=== PATIENT | female | born 2000 | race Caucasian/White ===

== ENCOUNTER 2022-08-04 23:57 | Emergency (ER) | payer OTHER ==
[~2022-08-04] VITALS: Ht 165.1 cm; Wt 94.3 kg
[2022-08-05 01:24] VITALS: BP 137/87
--- NOTE | 2022-08-05 01:28 | NUR ---
PT TO LOBBY TO A/W BED
--- NOTE | 2022-08-05 04:14 | NUR ---
PT TO CHAIR B
[2022-08-05] MEDS ORDERED: HYDROcodone/APAP 5/325 MG 1 TAB TAB PO ONE (05:10)
[2022-08-05] MEDS ORDERED: BACI-416 TP (05:17)
[2022-08-05] MEDS ORDERED: NAPR-54 PO (05:17)
[2022-08-05] MEDS ORDERED: BACITRACIN OINT 500 UNITS/GM PKT TP ONE (05:20)
--- NOTE | 2022-08-05 05:43 | NUR ---
Patient discharged with v/s stable. Written and verbal after care instructions given and explained. Patient alert, oriented and verbalized understanding of instructions. Ambulatory with steady gait. All questions addressed prior to discharge. ID band removed. Patient advised to follow up with PMD. Rx of BACITRACIN AND NAPROXEN given. Patient educated on indication of medication including possible reaction and side effects. Opportunity to ask questions provided and answered.
== END 2022-08-05 05:43 | disposition home or self-care (01) ==
LOC: MED 23:57
DX: S60.021A Contusion of right index finger without damage to nail, initial encounter (principal); Z79.899 Other long term (current) drug therapy; Z90.49 Acquired absence of other specified parts of digestive tract; W45.8XXA Other foreign body or object entering through skin, initial encounter; Y93.89 Activity, other specified; Y92.89 Other specified places as the place of occurrence of the external cause; Y99.8 Other external cause status
CPT/HCPCS: 29130; 73140; 99283; Q0092